=== PATIENT | male | born 1975 | race Caucasian/White ===

== ENCOUNTER → 2016-04-20 | Outpatient (CLI) | payer BC | END | disposition home or self-care (01) | LOC: PCVCIMAG 13:12 | PROVIDERS: ATTEND Internal Medicine Cardiovascular Disease | DX: E78.00 Pure hypercholesterolemia, unspecified (principal); I10 Essential (primary) hypertension; R94.31 Abnormal electrocardiogram [ECG] [EKG]; K21.9 Gastro-esophageal reflux disease without esophagitis | CPT/HCPCS: 93306; 93351 ==

== ENCOUNTER → 2018-05-10 | Outpatient (CLI) | payer BC ==
--- NOTE | 2018-05-10 10:48 | PCVCIMAG ---
APPROVED REPORT Study performed: 05/10/2018 09:04:37 Exam: Stress Echocardiogram Indication: abn ekg,htn,dyspnea,, Hyperlipidemia Patient Location: Echo lab Stress Nurse: Anabell Haney RN Room #: 2 Status: routine Ht: 5 ft 8 in HR: 117 bpm BP: 146/90 mmHg Rhythm: Sinus Tachycardia Medical History Medical History: HTN, Hyperlipidemia, No history of CAD Cardiac Risk Factors: Hyperlipidemia, HTN, FHX of CAD Previous Cardiac Procedures: none Pretest Chest Pain Characteristics: No chest pain Exercise History: Physically active Physical Disabilities: sprained ankle recently Procedure The patient underwent an Exercise Stress Test using the Hedy Protocol. Blood pressure, heart rate, and EKG were monitored. An Echocardiogram was performed by mechanical system technician in four stages in quad fashion. At peak stress, four selected images were obtained and placed side by side with resting images for comparison. Stress Test Details Stress Test: Exercise stress testing was performed using a Hedy protocol. HR Resting HR: 117 bpmMax Heart Rate (APMHR): 176 bpm Max HR Achieved: 164 bpmTarget HR (85% APMHR): 149 bpm % of APMHR: 93 Recovery HR: 116 bpm HR response to stress: Normal HR response to stress BP Resting BP: 146/90 mmHg Max BP: 168/84 mmHg Recovery BP: 138/100 mmHg BP response to stress: Normal blood pressure response to stress. ECG Resting ECG: Sinus Rhythm, nonspecific ST-T abnormalities Stress ECG: Sinus Rhythm, NSSTT changes ST Change: Non-ischemic Arrhythmia: None Recovery ECG: Sinus Rhythm Recovery ST Change: Non-ischemic Recovery Arrhythmia: None Clinical Reason for Termination: Maximal effort Stress Symptoms: Leg Fatigue Exercise duration: 9 min 00 sec Highest Stage Achieved: Stage 3: 3.4 mph at 14% grade. Exercise capacity: 10.4 METs Overall Exercise Capacity for Age: Average Scale: Active Angina Score: None No complications. Stress ECG Conclusion The patient exercised according to the HEDY protocol for 9:00 mins; achieving a work level of 10.1 METS. The resting heart rate of 117 bpm elina to a maximum heart rate of 164 bpm. This value represent 93% of the maximal, age-predicted heart rate. The resting blood pressure of 146/90 mmHg, elina to a maximum blood pressure of 168/84 mmHg. The exercise test was stopped due to fatigue. Pre-Stress Echo The resting Echocardiogram showed normal left ventricular contractility with an estimated Ejection Fraction of about 55-60%. Normal wall motion in all segments on baseline images. Post-Stress Echo The stress Echocardiogram showed normal left ventricular contractility with an estimated Ejection Fraction of about 65-70%. Normal augmentation of wall motion in all segments on post stress images. Clinical No clinical or ECG evidence for ischemia. Conclusion Clinical Response: Non-ischemic Exercise Capacity: Average Stress ECG Response: Non-ischemic Stress Echo Images: Non-ischemic The left ventricle is normal in size and wall thickness in both the rest and stress images. <Conclusion> The left ventricle is normal in size and wall thickness in both the rest and stress images.
== END | disposition home or self-care (01) ==
LOC: PCVCIMAG 09:17
PROVIDERS: ATTEND Internal Medicine Cardiovascular Disease
DX: I10 Essential (primary) hypertension (principal); E78.5 Hyperlipidemia, unspecified; R94.31 Abnormal electrocardiogram [ECG] [EKG]; R06.09 Other forms of dyspnea
CPT/HCPCS: 93325; 93351